=== PATIENT | female | born 1940 | race Caucasian/White ===

== ENCOUNTER 2020-07-09 12:55 | Outpatient (CLI) | payer MEDICARE, SELFPAY ==
--- NOTE | ~2020-07-09 | MM_ITS ---
EXAMINATION: MM screening milton BI w tonia HISTORY: Screening TECHNIQUE: Craniocaudal and mediolateral oblique 3-D tomosynthesis images were obtained and synthetic 2-D images were generated. CAD analysis was submitted and interpreted. COMPARISON: Comparison to multiple prior studies sequentially, with oldest reviewed study dated 03/20. BREAST PARENCHYMAL COMPOSITION: The breasts are heterogenously dense, which may obscure small masses. FINDINGS: There is no evidence of suspicious mass, calcification, or architectural distortion to sugg est malignancy in either breast. There has been no suspicious interval change. IMPRESSION: 1. No mammographic evidence of malignancy. 2. Recommend routine screening mammography in one year. BI-RADS Category 1: Negative Reviewed, dictated and finalized at location A.
--- NOTE | ~2020-07-09 | DEXA_ITS ---
BMD(1) Young-Adult(2) Age-Matched(3) Region (g/cm2) T-score Z-score WHO Classification L1 1.089 -0.4 1.5 Normal L2 1.206 0.0 1.9 Normal L3 1.565 2.8 4.7 Normal L4 1.598 3.0 4.8 Normal L1-L2 1.146 -0.2 1.7 Normal Trend: L1-L2 Change vs Change vs Measured Age BMD(1) Baseline Previous Date [age]) (g/cm2) (%) (%) 07/09/2020 [age] 1.146 5.3* 1.7 06/22/2018 77.6 1.127 3.6 5.5* [birth year][age]27[birth year]2016 [age] 1.068 -1.8 -1.8 05/11/2014 [age] 1.088 baseline - * - Indicates significant change based on 95% confidence interval. 1 - Statistically 68% of repeat scans fall within 1SD (+- 0.020 g/cm2 for AP Spine L1-L2) 2 - [place] (Combined NHANES (ages 20-30) / [employer] (ages 20-40)) AP Spine Reference Population (v112) 3 - Matched for Age, Weight (females 25-100 kg), Ethnic 11 - World Health Organization - Definition of Osteoporosis and Osteopenia for Women: Normal = T-score at or above -1.0 SD; Osteopenia = T-score between -1.0 and -2.5 SD; Osteoporosis = T-score at or below -2.5 SD; (WHO definitions only apply when a young healthy Women reference database is used to determine T-scores.) Printed: 07/09/2020 1:38:03 PM (13.60)76:3.00:50.00:12.0 0.00:10.68 0.60x1.05 21.0:%Fat=35.4% 0.00:0.00 0.00:0.00 Filename: [id number] Scan Mode: Standard;OneScan 37.0 Kybernesis [id number] BMD(1) Young-Adult(2,7) Age-Matched(3) Region (g/cm2) T-score Z-score WHO Classification Neck Left 0.783 -1.8 0.3 Osteopenia Right 0.951 -0.6 1.5 Normal Mean 0.867 -1.2 0.9 Osteopenia Difference 0.168 1.2 1.2 - Total Left 0.793 -1.7 0.3 Osteopenia Right 0.860 -1.2 0.9 Osteopenia Mean 0.826 -1.4 0.6 Osteopenia Difference 0.067 0.5 0.5 - Hip [place] Length Comparison (mm) (Right = 104.4 mm) (Mean = 103.1 mm) (Left = 101.1 mm) Trend: Total Mean Change vs Change vs Measured Age BMD(1) Baseline Previous Date [age]years) (g/cm2) (%) (%) 07/09/2020 79.7 0.826 2.2 2.2 05/11/2014 73.5 0.808 baseline - 1 - Statistically 68% of repeat scans fall within 1SD (+- 0.010 g/cm2 for DualFemur Total) 2 - [place] (Combined NHANES (ages 20-30) / [employer] (ages 20-40)) Femur Reference Population (v112) 3 - Matched for Age, Weight (females 25-100 kg), Ethnic 7 - DualFemur Total T-score difference is 0.5. Asymmetry is None. 11 - World Health Organization - Definition of Osteoporosis and Osteopenia for Women: Normal = T-score at or above -1.0 SD; Osteopenia = T-score between -1.0 and -2.5 SD; Osteoporosis = T-score at or below -2.5 SD; (WHO definitions only apply when a young healthy Women reference database is used to determine T-scores.) Printed: 07/09/2020 1:38:04 PM (13.60); Filename: [id number]; Right Femur; 17.7:%Fat=35.9%; Neck Angle (deg)= 62; Scan Mode: Standard 37.0 uGy; Left Femur; 18.0:%Fat=35.5%; Neck Angle (deg)= 59; Scan Mode: Standard 37.0 uGy SCADA Access [id number] Dear Ed Helms, Your patient Maggy Wilson completed a BMD test on 07/09/2020 using the SCADA Access DXA System (analysis version: 13.60) manufactured by [employer]. The following summarizes the results of our evaluation. PATIENT BIOGRAPHICAL: Name: Maggy Wilson
--- NOTE | ~2020-07-09 | US_ITS ---
EXAMINATION: US carotid duplex BI DATE: 07/09/2020 13:50 INDICATION: Carotid stenosis TECHNIQUE: Grayscale, color Doppler, and pulsed Doppler images of the cervical carotid arteries were obtained. The degree of vessel stenosis is placed in one of the following categories: normal, <50%, 5 0-69%, >=70% but less than near-occlusion, near-occlusion, or total occlusion. Note that percent sten osis relative to normal distal artery lumen diameter is indirectly measured from velocity measurement s as described by Terrell, et al. Radiology 2003; 229:340-346. Notes: Normal: Peak systolic velocity <125 centimeters/sec and no plaque <50%. Peak systolic velocity <125 ( EDV <40; ICA/CCA PSV ratio <2.0; used these factors only a tandem lesions or low cardiac output or co ntralateral disease) 50-69 %: PSV 125-230 (EDV 40-100; ratio 2-4) >= 70% but less than near occlusion: PSV greater than 230 (EDV > 100; ratio> 4.0) Near Occlusion: PSV that is variable; markedly narrowed lumen Occlusion: Absent flow on color/spectral Doppler and no lumen on lopes scale. COMPARISON: None. FINDINGS: RIGHT: The right common carotid artery (CCA) peak systolic velocity (PSV) is 134 cm/s. The right internal ca rotid artery (ICA) PSV is 97 cm/s. The right ICA end-diastolic velocity (EDV) is 24 cm/s. The right I CA/CCA PSV ratio is 0.7. The external carotid artery (ECA) PSV is 79 cm/s. There is antegrade flow in the right vertebral artery. LEFT: The left CCA PSV is 132 cm/s. The left ICA PSV is 96 cm/s. The left ICA EDV is 25 cm/s. The left ICA/ CCA PSV ratio is 0.7. The ECA PSV is 84 cm/s. There is antegrade flow in the left vertebral artery. IMPRESSION: 1. Less than 50% stenosis in the right internal carotid artery by sonographic criteria. 2. Less than 50% stenosis in the left internal carotid artery by sonographic criteria. Reviewed, dictated and finalized at location A. IMPRESSION: 1. Less than 50% stenosis in the right internal carotid artery by sonographic [place]. 2. Less than 50% stenosis in the left internal carotid artery by sonographic milena collier.
== END 2020-07-09 12:56 | disposition home or self-care (01) ==
PROVIDERS: PCP Internal Medicine; Visit Provider Internal Medicine
DX: Z12.31 Encounter for screening mammogram for malignant neoplasm of breast (principal); M81.0 Age-related osteoporosis without current pathological fracture; I65.29 Occlusion and stenosis of unspecified carotid artery
CPT/HCPCS: 77063; 77067; 77080; 93880

== ENCOUNTER 2020-07-30 08:53 | Outpatient (CLI) | payer MEDICARE, SELFPAY ==
[2020-07-30] MEDS: ZOLEDRONIC ACID 5 MG/100 ML 100 ML 400 MG IVPB (09:14)
== END 2020-07-30 08:54 | disposition home or self-care (01) ==
LOC: CHSTREATRM 08:55
PROVIDERS: PCP Internal Medicine; Visit Provider Internal Medicine
DX: M81.0 Age-related osteoporosis without current pathological fracture (principal)
CPT/HCPCS: 96365; J3489

== ENCOUNTER 2021-06-17 09:20 | Outpatient (CLI) | payer MEDICARE, SELFPAY ==
--- NOTE | ~2021-06-17 | US_ITS ---
US right upper quadrant INDICATION: Right upper quadrant abdominal pain PROCEDURE: Realtime right upper abdominal ultrasound. COMPARISON: No prior studies for comparison. FINDINGS: The pancreas is obscured by bowel gas. Liver echotexture is increased, consistent with fat ty infiltration. There is normal directional flow in the portal vein. The gallbladder is normal without stones, gallbladder wall thickening or pericholecystic fluid. Comm on bile duct measures 2 mm. No sonographic Bañuelos's sign. IMPRESSION: 1: Hepatic steatosis. Reviewed, dictated and finalized at location A. IMPRESSION: 1: Hepatic steatosis.
--- NOTE | ~2021-06-17 | XR_ITS ---
EXAMINATION: XR chest 2V DATE: 06/17/2021 09:57 INDICATION: Chest pain and right upper quadrant abdominal pain TECHNIQUE: PA and lateral views of the chest were obtained. COMPARISON: Chest radiograph dated 03/31/2013 FINDINGS: Masslike opacity in the superior segment of the left lower lobe projecting posterior to the left hilu m which is concerning for primary bronchogenic carcinoma. Increased interstitial pattern in the bilat eral lower lung zones with bronchial wall thickening which could be due to bronchitis or mild pulmona ry edema. The cardiomediastinal silhouette is normal. Moderate thoracic and upper lumbar spondylosis. IMPRESSION: 1. Masslike opacity superior segment of the left lower lobe concerning for primary bronchogenic carci noma with differential including either atelectasis or pneumonia. Recommend contrast-enhanced chest C T for further evaluation. Dr. Middleton discussed these findings with Dr. Helms at 11:30 AM. 2. Mild increased interstitial pattern with bronchial wall thickening in the bilateral lower lung zon es which could represent bronchitis or mild pulmonary edema. Reviewed, dictated and finalized at location A. IMPRESSION: 1. Masslike opacity superior segment of the left lower lobe concerning for prim jaye bronchogenic carcinoma with differential including either atelectasis or pn eumonia. Recommend contrast-enhanced chest CT for further evaluation. Dr. Ambrocio masterson discussed these findings with Dr. Helms at 11:30 AM. 2. Mild increased interstitial pattern with bronchial wall thickening in the bi lateral lower lung zones which could represent bronchitis or mild pulmonary navarro ma.
[2021-06-17 09:32] LABS: Basophils Absolute Auto 0.09 K/mm3 (0.00-0.10); Basophils Percent Auto 1.2 % (0.0-1.0); Eosinophils Absolute Auto 0.17 K/mm3 (0.02-0.50); Eosinophils Percent Auto 2.2 % (1.0-6.0); Hematocrit 41.2 % (35.0-42.0); Hemoglobin 13.4 g/dL (11.7-13.8); Immature Granulocyte Absolute 0.02 K/mm3 (0.00-0.00); Immature Granulocyte Percent A 0.3 % (0.0-0.0); Lymphocytes Absolute Auto 1.59 K/mm3 (1.10-4.50); Lymphocytes Percent Auto 20.8 % (18.0-42.0); Mean Corpuscular HGB Conc 32.5 g/dL (32.0-36.0); Mean Corpuscular Hemoglobin 28.8 pg (27.0-31.0); Mean Corpuscular Volume 88.4 fL (78.0-102.0); Monocytes Absolute Auto 0.58 K/mm3 (0.10-0.90); Monocytes Percent Auto 7.6 % (2.0-11.0); Neutrophils Absolute Auto 5.2 K/mm3 (1.7-7.2); Neutrophils Percent Auto 67.9 % (50.0-70.0); Platelet Count Result 427 K/mm3 (150-420); Red Blood Count 4.66 M/mm3 (4.20-5.40); Red Cell Distribution Width 13.2 % (11.6-14.4); White Blood Count 7.7 K/mm3 (4.8-10.8)
[2021-06-17 10:29] LABS: Alanine Aminotransferase 23 U/L (14-59); Albumin Level 3.9 g/dL (3.4-5.0); Alkaline Phosphatase 86 U/L (46-116); Amylase 67 U/L (25-115); Anion Gap 11 mmol/L (8-16); Aspartate Amino Transferase 19 U/L (15-37); Bilirubin,Total 0.6 mg/dL (0.00-1.00); Blood Urea Nitrogen 15 mg/dL (7-18); Calcium 10.1 mg/dL (8.5-10.1); Carbon Dioxide 26 mmol/L (21-32); Chloride 103 mmol/L (98-108); Estimated Glomerular Filt Rate > 60; Glucose 101 mg/dL (70-99); Lipase 117 U/L (73-393); Osmolality Calculated 290 mOsm/kg (285-295); Potassium 4.2 mmol/L (3.5-5.1); Sodium 140 mmol/L (136-145); Total Protein 7.5 g/dL (6.4-8.2)
== END 2021-06-17 09:21 | disposition home or self-care (01) ==
LOC: CHSLAB 09:22
PROVIDERS: PCP Internal Medicine; Visit Provider Internal Medicine
DX: R07.9 Chest pain, unspecified (principal); R10.11 Right upper quadrant pain; R10.13 Epigastric pain
CPT/HCPCS: 36415; 71046; 76705; 80053; 82150; 83690; 85025

== ENCOUNTER 2021-06-18 07:43 | Outpatient (CLI) | payer MEDICARE, SELFPAY ==
--- NOTE | ~2021-06-18 | CT_ITS ---
EXAMINATION: CT diagnostic chest w con DATE: 06/18/2021 08:11 INDICATION: Lung mass. Nonproductive cough. TECHNIQUE: Computed tomography (CT) of the chest was performed with 75 cc Omnipaque 350 intravenous c ontrast. The dose-length product was 122.71 mGy-cm. Automated exposure control and iterative reconstr uction technique were employed. COMPARISON: Chest x-ray dated 06/17/2021 FINDINGS: There is a mass of the superior segment left lower lobe with invasion of the hilum extendin g to the pleural surface posteriorly. This mass measures approximately 4.4 x 3.8 x 3.2 cm, compatible with bronchogenic carcinoma until proven otherwise. There are enlarged hilar lymph nodes, likely met astatic disease. There is subcarinal lymphadenopathy. Moderate pericardial effusion. No evidence for thoracic aortic aneurysm or dissection. No evidence for pulmonary embolism. There are multiple small bilateral pulmonary nodules spread throughout both lungs, consistent with metastatic disease. No pneu mothorax. Moderate thoracic spondylosis. No lytic or blastic lesions. No acute osseous abnormality. IMPRESSION: 1. 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 There is metasta tic disease to the mediastinum, diane and bilateral lungs. 2: Moderate pericardial effusion. Reviewed, dictated and finalized at location A. IMPRESSION: 1. 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 There is metastatic disease to the mediastinum, diane and bilateral lungs. 2: Moderate pericardial effusion.
== END 2021-06-18 07:44 | disposition home or self-care (01) ==
LOC: CHSIMG 07:44
PROVIDERS: PCP Internal Medicine; Visit Provider Internal Medicine
DX: R91.8 Other nonspecific abnormal finding of lung field (principal)
CPT/HCPCS: 71260; Q9967

== ENCOUNTER 2021-07-15 10:54 | Outpatient (CLI) | payer MEDICARE, SELFPAY ==
[2021-07-15 12:02] LABS: SARS-CoV-2 RNA PCR Negative (Negative)
== END 2021-07-15 10:55 | disposition home or self-care (01) ==
LOC: CHSLAB 10:56
PROVIDERS: PCP Internal Medicine; Visit Provider Internal Medicine
DX: Z20.822 Contact with and (suspected) exposure to COVID-19 (principal)
CPT/HCPCS: C9803; U0003; U0005

== ENCOUNTER 2021-09-22 07:43 | Emergency (ER) | payer MEDICARE, SELFPAY ==
[2021-09-22] VITALS (21 sets, daily range): BP systolic 91–125; BP diastolic 50–83; PULSE 78–149; RESP 18–60; TEMP 36.4–36.6; O2SAT 84–91
--- NOTE | ~2021-09-22 | XR_ITS ---
EXAMINATION: XR chest 1V portable EXAM DATE: 09/22/2021 08:04 INDICATION: Respiratory distress, shortness of breath. Known lung cancer. TECHNIQUE: Portable AP frontal chest x-ray was obtained. Comparison is made to prior examination from 06/17/2021. FINDINGS: Extensive abnormal reticular nodular opacities in patient with known left hilar cancer, are probably superimposed acute airspace disease such as pneumonia or edema. Possible small pleural effu sions. There is a right-sided Chemo-Port. No pneumothorax. Cardiomediastinal silhouette is normal. Th ere are mild bony degenerative changes. IMPRESSION: 1. Diffuse abnormal reticulonodular airspace disease probably edema or pneumonia. 2. Left hilar malignancy. Reviewed, dictated and finalized at location A. ENGER SCREENER IMPRESSION: 1. Diffuse abnormal reticulonodular airspace disease probably edema or pneumon ia. 2. Left hilar malignancy.
--- NOTE | 2021-09-22 07:49 | ECG_ITS ---
Measurements Intervals [place] Rate: 147 P: ND: 0 QRS: 97 QRSD: 75 T: 227 QT: 285 QTc: 447 Interpretive Statements ATRIAL FIBRILLATION WITH RAPID VENTRICULAR RESPONSE RIGHT AXIS DEVIATION BORDERLINE T WAVE ABNORMALITY- ANTEROLATERAL LEADS BASELINE ARTIFACT- I, II, III, AVR, AVL, AVF, V6 ABNORMAL ECG Electronically Signed On 09-22-2021 8:57:29 [employer] by Alec Shankar D.O.
[2021-09-22 08:00] LABS: Base Excess ABG 2.6 mmol/L (0-2); HCO3 ABG 23.6 mmol/L (23-29); Oxygen Content ABG 17.1 %vol (16.0-22.0); Oxyhemoglobin 94.7 % (94-100); PCO2 ABG 26.7 mmHg (35-45); PO2 ABG 69.6 mmHg (75-85); Total Hemoglobin 12.8 g/dL (12.0-18.0); pH ABG 7.57 (7.35-7.45)
[2021-09-22 08:01] LABS: Device NON-REBREATHER MASK; Modified Allen's Test Pass; Site Drawn LEFT RADIAL
--- NOTE | 2021-09-22 08:13 | ED.SOB ---
HPI - SOB/Dyspnea General Chief Complaint: Shortness of Breath/Dyspnea Stated Complaint: AMBULANCE Time Seen by Provider: 09/22/21 07:43 Source: patient and family Mode of arrival: EMS Limitations: clinical condition History of Present Illness HPI Narrative: 80-year-old woman diagnosed 2 months ago with stage IV lung cancer brought to the emergency department with increased shortness of breath overnight. She uses on 8.5 L of oxygen at home. She has had no recent sick exposures, fever, productive cough or chest pain. Her states that she had a episode of atrial fibrillation after a pericardiocentesis approximately 1 month ago. It resolved spontaneously. Her states that she has been very weak lately, only able to get up to go to the restroom and then back to rest. MD elicited complaint: shortness of breath Pertinent past history: other (Atrial fibrillation, lung cancer) Onset (ago): hour(s) (6) Timing: constant and progressively worsening Severity: severe Exacerbating factors: lying flat Relieving factors: oxygen Associated symptoms: denies other symptoms Treatment prior to arrival: oxygen and bronchodilator Related Data Home oxygen amount: other (8.5 L concentrator) Home Medications Medication Instructions Recorded Confirmed albuterol sulfate [Ventolin HFA] 2 inh INHALATION DAILY 09/22/21 09/22/21 apixaban [Eliquis] 5 mg PO BID 09/22/21 09/22/21 zolpidem 5 mg PO DAILY 09/22/21 09/22/21 Allergies Allergy/AdvReac Type Severity Reaction Status Date / Time No Known Allergies Allergy Unverified 09/22/21 08:37 Review of Systems Constitutional: Constitutional: Denies chills, Denies fever(s) and Reports weakness ENT: Denies nasal congestion and Denies sore throat Cardiovascular: Cardiovascular: Denies chest pain, Reports rapid heart rate and Denies radiating jaw, neck or arm pain Respiratory: Respiratory: Reports chest congestion, Denies cough, Reports dyspnea and Denies wheezing Gastrointestinal: Gastrointestinal: Denies abdominal pain, Denies diarrhea, Denies nausea and Denies vomiting Musculoskeletal: Musculoskeletal: Denies arthralgias and Denies joint swelling Integumentary/Breasts: Skin/Breast: Denies pruritus, Denies erythema and Denies rash Neurologic: Denies dizziness, Denies syncope and Denies focal weakness Hematologic/Lymphatic: Hematologic/Lymphatic: Denies easy bleeding and Denies easy bruising Allergic/Immunologic: Allergic/Immunologic: Denies lip swelling and Denies throat swelling PMFSH Past Medical History Medical History (Updated 09/22/21 @ 16:01 by Jerod Cotton MD) Anxiety GERD (gastroesophageal reflux disease) Hyperlipidemia Hypothyroidism Lung cancer Osteoporosis Pericardial effusion Pleural effusion Surgical History Surgical History (Updated 09/22/21 @ 08:53 by Jerod Cotton MD) History of bunionectomy History of cataract surgery History of tubal ligation Status post right knee replacement Social History Social History (Updated 09/22/21 @ 08:53 by Jerod Cotton MD) Smoking status: Never smoker Alcohol intake: current Alcohol use details: Socially Substance use: never Living arrangements: with family Exam Const: General: alert and ill appearing chronically Orientation/consciousness: patient oriented x3 Other: Acute respiratory distress, anxious. Mild pallor. HENMT: Head: normal to inspection Mouth: Yes moist mucous membranes Throat: posterior oropharynx normal Eyes: Conjunctivae: conjunctivae normal Pupils: Equal, round and reactive pupils present EOM: EOMs intact bilaterally Resp: Auscultation: wheezes (Few scattered wheezes. Good air movement throughout) and diminished lung sounds bilateral in the lower lung kelly Course Course Emergency Course: I had several discussions with the patient and her regarding optimal treatment and listing the help of a windows software engineer (meaning transfer) to get her rate under co
[2021-09-22] MEDS: dilTIAZem HCl INJ 25 MG/5 ML VIAL 10 MG IV PUSH (08:25)
[2021-09-22 08:36] LABS: Hematocrit 37.9 % (35.0-42.0); Hemoglobin 11.6 g/dL (11.7-13.8); Mean Corpuscular HGB Conc 30.6 g/dL (32.0-36.0); Mean Corpuscular Hemoglobin 26.5 pg (27.0-31.0); Mean Corpuscular Volume 86.7 fL (78.0-102.0); Mean Platelet Volume 9.9 fl (9.2-11.8); Platelet Count Result 738 K/mm3 (150-420); Red Blood Count 4.37 M/mm3 (4.20-5.40); Red Cell Distribution Width 16.5 % (11.6-14.4)
[2021-09-22 08:41] LABS: White Blood Count 24.6 K/mm3 (4.8-10.8)
[2021-09-22 08:45] LABS: Influenza Control Valid (Valid)
[2021-09-22] MEDS: methylPREDNISolone SOD SUCC 125 MG VIAL IV PUSH (08:45)
[2021-09-22 08:46] LABS: SARS-CoV-2 Ag Negative (Negative)
[2021-09-22 08:48] LABS: INR 1.3; Partial Thromboplastin Time 31.3 SEC (23.90-30.70); Prothrombin Time 13.2 Seconds (9.50-12.10)
[2021-09-22 08:59] LABS: Band Neutrophils Percent 0 % (0-6); Eosinophils Percent Manual 0 % (1-6); Lymphocytes Absolute Manual 0.98 K/mm3 (1.1-4.5); Lymphocytes Percent Manual 4 % (18-44); Monocytes Absolute Manual 0.24 K/mm3 (0.1-0.90); Monocytes Percent Manual 1 % (3-9); Neutrophils Absolute Manual 23.37 K/mm3 (1.7-7.2); Neutrophils Percent Manual 95 % (46-73); Platelet Estimate Increased (Adequate); Total Cells Counted 100
[2021-09-22 09:02] LABS: Appearance Urine Clear (Clear); Bilirubin Urine Negative (Negative); Color Urine Yellow (Yellow); Glucose Urine UA Negative (Negative); Ketones Urine Negative (Negative); Leukocyte Esterase Ur Negative LEU/UL (Negative); Nitrate Urine Negative (Negative); Protein Urine Trace (Negative); Specific Grav Ur 1.025 (1.010-1.020); Urobilinogen Urine 0.2 mg/dL (0.2-1.0)
[2021-09-22 09:06] LABS: Add Urine Microscopic? YES; Blood Urine Trace-Intact (Negative); Lactic Acid Reflex 2.5 mmol/L (0.4-2.0); RBC Urine 0-2 /hpf (0-2); WBC Urine 0-3 /hpf (0-3)
[2021-09-22 09:07] LABS: Bacteria Urine Trace /hpf; Mucus Urine Moderate /lpf; Squamous Epithelial Cell Urine Few /hpf (Few)
[2021-09-22 09:09] LABS: NT Pro B Type Natriuretic Pept 2514 pg/mL (0-450)
[2021-09-22 09:09] LABS: Alanine Aminotransferase 28 U/L (14-59); Albumin Level 2.4 g/dL (3.4-5.0); Alkaline Phosphatase 193 U/L (46-116); Anion Gap 11 mmol/L (8-16); Aspartate Amino Transferase 18 U/L (15-37); Bilirubin,Total 0.6 mg/dL (0.00-1.00); Blood Urea Nitrogen 32 mg/dL (7-18); CRP 7.6 mg/dL (0.0-0.9); Calcium 8.8 mg/dL (8.5-10.1); Carbon Dioxide 27 mmol/L (21-32); Chloride 105 mmol/L (98-108); Estimated CRCL calculation 32 ml/min; Estimated Glomerular Filt Rate 55; Glucose 173 mg/dL (70-99); Osmolality Calculated 306 mOsm/kg (285-295); Potassium 4.1 mmol/L (3.5-5.1); Sodium 143 mmol/L (136-145); Total Protein 6.2 g/dL (6.4-8.2)
[2021-09-22] MEDS: MAGNESIUM SULF 2 GM/WATER 50ML 2 GM/50 ML BAG IVPB (09:33)
[2021-09-22 09:36] LABS: Magnesium 2.4 mg/dL (1.8-2.4)
[2021-09-22] MEDS: IPRATROPIUM 0.5 MG/ALBUTEROL SULFATE 2.5 MG AMPUL.NEB 3 ML INHALATION (11:14)
[2021-09-22 11:30] LABS: Reflex Lactic Acid Yes or No Add Lactic
[2021-09-22] MEDS: MORPHINE SULFATE (*CRX) 2 MG/ML INJ IV PUSH (12:48)
[2021-09-22] MEDS: AMIODARONE 150 MG/D5W 100 ML 150 MG/100 ML BAG 600 MG IV CONT (12:48)
[2021-09-22] MEDS: IPRATROPIUM 0.5 MG/ALBUTEROL SULFATE 2.5 MG AMPUL.NEB 3 ML (15:41)
--- NOTE | 2021-09-22 16:51 | PC.NURSE ---
1505 CARDIZEM DECREASED TO 7MCG/HR 1530 CARDIZEM DECREASED TO 5MCG/HR 1555 CARDIZEM DECREASED TO 2MCG/HR
== END 2021-09-22 17:07 | disposition hospice, home (50) ==
PROVIDERS: Emergency Provider Emergency Medicine; PCP Internal Medicine
DX: I48.20 Chronic atrial fibrillation, unspecified (principal); C34.32 Malignant neoplasm of lower lobe, left bronchus or lung; J96.21 Acute and chronic respiratory failure with hypoxia; Z20.822 Contact with and (suspected) exposure to COVID-19; K21.9 Gastro-esophageal reflux disease without esophagitis; E03.9 Hypothyroidism, unspecified; E78.5 Hyperlipidemia, unspecified; M81.0 Age-related osteoporosis without current pathological fracture
CPT/HCPCS: 36415; 36600; 71045; 80053; 81001; 82805; 83605; 83735; 83880; 84484; 85025; 85610; 85730; 86140; 87040; 87426; 87804; 93005; 94640; 96365; 96366; 96367; 96368; 96375; 96376; 99283; 99284; A9270; C9803; J0282; J2270; J2543; J2930; J3475